=== PATIENT | female | born 1945 | race Caucasian/White ===

== ENCOUNTER 2023-01-28 12:52 | Emergency (ER) | payer OTHER ==
[~2023-01-28] VITALS: Ht 162.6 cm; Wt 59.9 kg
== END 2023-01-28 17:14 | disposition home or self-care (01) ==
LOC: ER 12:52
DX: K57.90 Diverticulosis of intestine, part unspecified, without perforation or abscess without bleeding (principal)

== ENCOUNTER 2023-02-03 09:42 | Inpatient (IN) | payer OTHER ==
[~2023-02-03] VITALS: Ht 162.6 cm; Wt 55.3 kg
[2023-02-04] MEDS ORDERED: SYNTHROID50 MCG PO (10:26)
[2023-02-08] MEDS ORDERED: SYNTHROID125 MCG (07:55)
[2023-02-08] MEDS ORDERED: FAMOTIDINE40 MG (07:55)
== END 2023-02-10 11:35 | disposition home or self-care (01) | DRG 331 ==
LOC: O/R 02-08 06:41 → SURH 02-08 10:45 → SURG 02-08 17:27
PROVIDERS: ADMIT Colon & Rectal Surgery; ATTEND Colon & Rectal Surgery
PROC: 0DBP4ZZ Excision of Rectum, Percutaneous Endoscopic Approach (ICD-10-PCS; 2023-02-08)
PROC: 0DJD8ZZ Inspection of Lower Intestinal Tract, Via Natural or Artificial Opening Endoscopic (ICD-10-PCS; 2023-02-08)
PROC: 8E0W4CZ Robotic Assisted Procedure of Trunk Region, Percutaneous Endoscopic Approach (ICD-10-PCS; 2023-02-08)
PROC: 0DTN4ZZ Resection of Sigmoid Colon, Percutaneous Endoscopic Approach (ICD-10-PCS; principal; 2023-02-08 14:00)
DX: K57.32 Diverticulitis of large intestine without perforation or abscess without bleeding (principal); R59.0 Localized enlarged lymph nodes; E03.9 Hypothyroidism, unspecified